=== PATIENT | male | born 1970 | race Caucasian/White ===

== ENCOUNTER 2020-11-20 10:13 | Emergency (ER) | payer OTHER, SELFPAY ==
[~2020-11-20] VITALS: Ht 165.1 cm; Wt 61.4 kg
[~2020-11-20 10:13] MED LIST: ASEN10TA10 SL; GABA-1201 PO; METF1000 PO
[2020-11-20] MEDS ORDERED: ACETAMINOPHEN 325 MG TABLET PO ONE (11:00)
[2020-11-20] MEDS ORDERED: SODIUM CHLORIDE 0.9% 1,000 ML IV ONE ×2 (11:00→12:15)
[2020-11-20 11:35] LABS: EOSINOPHILS % (AUTO) 0.3 % (1.0-6.0); HEMATOCRIT 40.6 % (41-53); HEMOGLOBIN 13.7 g/dL (13.5-17.5); LYMPHOCYTES # (AUTO) 1.6 K/uL (1.0-4.8); LYMPHOCYTES % (AUTO) 28.2 % (22.0-44.0); MEAN CORPUSCULAR HEMOGLOBIN 31.5 pg (26.0-34.0); MEAN CORPUSCULAR HGB CONC 33.6 G/dL (31.0-37.0); MEAN CORPUSCULAR VOLUME 94 fL (80-100); MONOCYTES # (AUTO) 0.4 K/uL (0.1-1.0); MONOCYTES % (AUTO) 7.3 % (2.0-9.0); NEUTROPHILS # (AUTO) 3.7 K/uL (1.8-7.7); NEUTROPHILS % (AUTO) 63.2 % (40.0-70.0); PLATELET COUNT (AUTO) 179 K/uL (150-450); RED BLOOD CELL COUNT(AUTO) 4.34 MIL/uL (4.50-5.90); RED CELL DISTRIBUTION WIDTH 12.8 % (11.5-14.5)
[2020-11-20 11:59] LABS: ALANINE AMINOTRANSFERASE 17 U/L (12-78); ALKALINE PHOSPHATASE 129 U/L (46-116); ANION GAP 14 mmol/L (8-16); ASPARTATE AMINOTRANSFERASE 11 U/L (15-37); BILIRUBIN,TOTAL 0.3 mg/dL (0.1-1.0); CALCIUM, TOTAL 8.4 mg/dL (8.8-10.5); CARBON DIOXIDE 23 mmol/L (22-29); CHLORIDE 95 mmol/L (98-107); CREATININE 0.96 mg/dL (0.60-1.30); GLOMERULAR FILTR. RATE CALC > 60 mL/min (>60); POTASSIUM 3.5 mmol/L (3.5-5.1); SODIUM SERUM 132 mmol/L (136-145); TOTAL PROTEIN, SERUM 6.5 g/dL (6.4-8.2); UREA NITROGEN, BLOOD 15 mg/dL (7-18)
[2020-11-20 12:01] LABS: GLUCOSE,RANDOM 620 mg/dL (70-110)
[2020-11-20] MEDS ORDERED: INSULIN REGULAR, HUMAN 100 UNITS/ML IVP ONE (12:15)
[2020-11-20 13:02] LABS: GLUCOMETER DEV NAME(LOC) ERT.5; GLUCOSE,POINT OF CARE 450 MG/DL (70-110)
[2020-11-20 13:28] LABS: GLUCOMETER DEV NAME(LOC) ERT.5; GLUCOSE,POINT OF CARE 315 MG/DL (70-110)
[2020-11-20 14:27] VITALS: BP 120/75
== END 2020-11-20 14:41 | disposition home or self-care (01) ==
LOC: EMS 10:20
DX: E11.65 Type 2 diabetes mellitus with hyperglycemia (principal); F20.9 Schizophrenia, unspecified; F31.9 Bipolar disorder, unspecified; F17.210 Nicotine dependence, cigarettes, uncomplicated; F15.90 Other stimulant use, unspecified, uncomplicated; Z88.1 Allergy status to other antibiotic agents; Z79.84 Long term (current) use of oral hypoglycemic drugs; Z79.899 Other long term (current) drug therapy
CPT/HCPCS: 36415; 80053; 82962; 85025; 96361; 96374; 99283; G0480; J1815; J7030

== ENCOUNTER 2022-09-17 19:53 | Inpatient (IN) | payer OTHER ==
[~2022-09-17] VITALS: Ht 165.1 cm; Wt 68.4 kg
[~2022-09-17 19:53] MED LIST changes: +ACET-2247 PO; -ASEN10TA10 SL; +BISA-151 PO; +CEFX2I IV; +DOCU-385 PO; +ETHY1MED2 NASAL; +FEP PR; -GABA-1201 PO; +HEPA500018 SQ; +HYDR-4723 PO; +INSU100V SQ; +LIDO700A15 TP; +MAGN-169 PO; -METF1000 PO; +PANT-31 PO
[2022-09-17 20:46] LABS: INR 1.1 (0.9-1.1); PROTHROMBIN TIME 11.7 SEC (9.4-11.6)
[2022-09-17 20:59] LABS: ANION GAP 15 mmol/L (8-16); CALCIUM, TOTAL 8.2 mg/dL (8.8-10.5); CARBON DIOXIDE 20 mmol/L (22-29); CHLORIDE 106 mmol/L (98-107); CREATININE 2.06 mg/dL (0.60-1.30); GLOMERULAR FILTR. RATE CALC 34 mL/min (>60); GLUCOSE,RANDOM 166 mg/dL (70-110); POTASSIUM 4.5 mmol/L (3.5-5.1); SODIUM SERUM 141 mmol/L (136-145)
[2022-09-17 21:00] LABS: EOSINOPHILS % (AUTO) 0.1 % (1.0-6.0); HEMATOCRIT 31.7 % (41-53); HEMOGLOBIN 9.5 g/dL (13.5-17.5); LYMPHOCYTES # (AUTO) 1.5 K/uL (1.0-4.8); LYMPHOCYTES % (AUTO) 11.2 % (22.0-44.0); MEAN CORPUSCULAR HEMOGLOBIN 23.3 pg (26.0-34.0); MEAN CORPUSCULAR VOLUME 78 fL (80-100); MONOCYTES # (AUTO) 1.6 K/uL (0.1-1.0); MONOCYTES % (AUTO) 11.8 % (2.0-9.0); NEUTROPHILS # (AUTO) 10.5 K/uL (1.8-7.7); NEUTROPHILS % (AUTO) 76.9 % (40.0-70.0); PLATELET COUNT (AUTO) 327 K/uL (150-450); RED BLOOD CELL COUNT(AUTO) 4.06 MIL/uL (4.50-5.90); RED CELL DISTRIBUTION WIDTH 20.4 % (11.5-14.5)
[2022-09-17 21:07] LABS: ALBUMIN 2.4 g/dL (3.4-5.0); ALKALINE PHOSPHATASE 86 U/L (46-116); ASPARTATE AMINOTRANSFERASE 63 U/L (15-37); BILIRUBIN,TOTAL 0.2 mg/dL (0.1-1.0); LIPASE 50 U/L (73-393); TOTAL PROTEIN, SERUM 7.2 g/dL (6.4-8.2)
[2022-09-17 21:11] LABS: LACTIC ACID 2.9 mmol/L (0.4-2.0)
[2022-09-17] MEDS ORDERED: SODIUM CHLORIDE 0.9% 1,900 ML IV ONE (21:15)
[2022-09-17 22:00] LABS: ALANINE AMINOTRANSFERASE 14 U/L (12-78)
[2022-09-17] MEDS ORDERED: CefTRIAXone 1 GM/DEXTROSE 50 ML IV ONE (22:00)
[2022-09-17] MEDS ORDERED: PANTOPRAZOLE SODIUM 40 MG/VIAL IVP ONE (22:15)
[2022-09-17] MEDS: PANTOPRAZOLE SODIUM 80 MG in SODIUM CHLORIDE 0.9% 100 ML IV SCH (22:15)
[2022-09-17] MEDS: HYDROCORTISONE 25 MG RECTAL SUPPOSITORY PR SCH (22:30)
[2022-09-17] MEDS ORDERED: ACETAMINOPHEN 325 MG TABLET PO PRN (22:30)
[2022-09-17] MEDS ORDERED: ONDANSETRON HCL 4 MG/2 ML VIAL IVP PRN (22:30)
[2022-09-17] MEDS ORDERED: SODIUM CHLORIDE 0.9% 1,000 ML IV ONE (22:30)
[2022-09-17] MEDS ORDERED: BISACODYL 10 MG RECTAL RECTAL SUPPOSITORY PR PRN (22:30)
[2022-09-17] MEDS ORDERED: MAGNESIUM HYDROXIDE SUSPENSION 30 ML UDCUP PO PRN (22:30)
[2022-09-18] MEDS ORDERED: IOHEXOL 350 MG/ML 100 ML VIAL ONE ×2 (02:56→03:11)
[2022-09-18] MEDS ORDERED: SODIUM CHLORIDE 0.9% 100 ML ONE ×2 (02:56→03:11)
[2022-09-18 04:03] LABS: APPEARANCE,URINE HAZY (CLEAR); BILIRUBIN,URINE NEGATIVE (NEGATIVE); GLUCOSE, URINE (UA) NEGATIVE (NEGATIVE); KETONES,URINE NEGATIVE (NEGATIVE); LEUKOCYTE ESTERASE ,URINE TRACE (NEGATIVE); NITRATE,URINE NEGATIVE (NEGATIVE); OCCULT BLOOD,URINE MODERATE (NEGATIVE); PH,URINE 5.5 (5.0-8.0); PROTEIN,URINE 100-200,SEE CONFIRM mg/dL (NEGATIVE); SPECIFIC GRAVITIY, URINE 1.018 (1.003-1.030); UROBILINOGEN,URINE <=1.0 mg/dL (<=1.0)
[2022-09-18 04:09] LABS: AMPHET/METH SCREEN,URINE NEGATIVE (NEGATIVE); BARBITURATE SCREEN, URINE NEGATIVE (NEGATIVE); BENZODIAZEPINES SCREEN,URINE NEGATIVE (NEGATIVE); CANNABINOID SCREEN,URINE NEGATIVE (NEGATIVE); COCAINE SCREEN,URINE NEGATIVE (NEGATIVE); METHADONE SCREEN, URINE NEGATIVE (NEGATIVE); OPIATE SCREEN,URINE NEGATIVE (NEGATIVE); PHENCYCLIDINE SCREEN,URINE NEGATIVE (NEGATIVE)
[2022-09-18 04:32] LABS: BACTERIA,URINE Few /HPF (None Seen); SQUAMOUS EPITHELIAL CELL,UR Few /LPF (None Seen); SULFOSALICYLIC ACID,URINE 2+ (Negative); WBC,URINE 0-2 /HPF (0-5)
[2022-09-18 04:33] LABS: AMORPHOUS SEDIMENT,UR Few /LPF (None Seen); COARSE GRANULAR CASTS,URINE None Seen /LPF (None Seen)
[2022-09-18 05:02] VITALS: BP 94/56
[2022-09-18 06:16] LABS: GLUCOMETER DEV NAME(LOC) 5N.1C; GLUCOSE,POINT OF CARE 89 MG/DL (70-110)
[2022-09-18 07:11] VITALS: BP 98/51
[2022-09-18] MEDS: PANTOPRAZOLE SODIUM 80 MG in SODIUM CHLORIDE 0.9% 100 ML IV SCH (08:15)
[2022-09-18] MEDS ORDERED: PANTOPRAZOLE SODIUM 80 MG in SODIUM CHLORIDE 0.9% 100 ML IV SCH (08:15)
[2022-09-18] MEDS: MORPHINE SULFATE 2 MG/ML SYRINGE IVP PRN (08:19)
[2022-09-18] MEDS ORDERED: *CLINICAL-LEVOFLOXACIN IVPB DOSING CLINICAL ONE (08:30)
[2022-09-18] MEDS: HYDROCORTISONE 25 MG RECTAL SUPPOSITORY PR SCH ×2 (08:35→21:00)
[2022-09-18] MEDS: DOCUSATE SODIUM 100 MG CAPSULE PO SCH ×2 (08:35→20:21)
[2022-09-18] MEDS: SODIUM CHLORIDE 0.9% 1,000 ML IV SCH ×2 (08:40→23:02)
[2022-09-18] MEDS: MetroNIDAZOLE 500 MG TABLET PO SCH ×3 (08:40→23:02)
[2022-09-18] MEDS ORDERED: PANTOPRAZOLE SODIUM 40 MG DR TABLET PO SCH (09:00)
[2022-09-18 10:33] LABS: BASOPHILS % (AUTO) 0.3 % (0.0-2.0); EOSINOPHILS % (AUTO) 0.3 % (1.0-6.0); HEMATOCRIT 27.7 % (41-53); HEMOGLOBIN 8.6 g/dL (13.5-17.5); LYMPHOCYTES # (AUTO) 1.5 K/uL (1.0-4.8); LYMPHOCYTES % (AUTO) 15.1 % (22.0-44.0); MEAN CORPUSCULAR HGB CONC 31.1 G/dL (31.0-37.0); MEAN CORPUSCULAR VOLUME 77 fL (80-100); MONOCYTES # (AUTO) 0.5 K/uL (0.1-1.0); MONOCYTES % (AUTO) 5.7 % (2.0-9.0); NEUTROPHILS # (AUTO) 7.6 K/uL (1.8-7.7); NEUTROPHILS % (AUTO) 78.6 % (40.0-70.0); PLATELET COUNT (AUTO) 297 K/uL (150-450); RED BLOOD CELL COUNT(AUTO) 3.59 MIL/uL (4.50-5.90); RED CELL DISTRIBUTION WIDTH 20.2 % (11.5-14.5)
[2022-09-18 10:48] LABS: ALANINE AMINOTRANSFERASE 8 U/L (12-78); ALBUMIN 2.1 g/dL (3.4-5.0); ALKALINE PHOSPHATASE 84 U/L (46-116); ANION GAP 8 mmol/L (8-16); ASPARTATE AMINOTRANSFERASE 53 U/L (15-37); BILIRUBIN,TOTAL 0.2 mg/dL (0.1-1.0); CALCIUM, TOTAL 8.1 mg/dL (8.8-10.5); CARBON DIOXIDE 22 mmol/L (22-29); CHLORIDE 110 mmol/L (98-107); CREATININE 0.78 mg/dL (0.60-1.30); GLOMERULAR FILTR. RATE CALC > 60 mL/min (>60); GLUCOSE,RANDOM 113 mg/dL (70-110); POTASSIUM 4.1 mmol/L (3.5-5.1); SODIUM SERUM 139 mmol/L (136-145); TOTAL PROTEIN, SERUM 6.6 g/dL (6.4-8.2)
[2022-09-18 11:23] VITALS: BP 96/54
[2022-09-18] MEDS: HYDROCODONE/ACETAMINOPHEN 5-325 MG TABLET PO PRN ×2 (14:50→20:27)
[2022-09-18 15:48] VITALS: BP 111/51
[2022-09-18] MEDS ORDERED: LEVOFLOXACIN 750 MG/D5% WATER 150 ML IV SCH (16:00)
[2022-09-18 20:13] VITALS: BP 135/69
[2022-09-18] MEDS: PANTOPRAZOLE SODIUM 40 MG DR TABLET PO SCH (20:21)
[2022-09-18] MEDS: ZOLPIDEM TARTRATE 5 MG TABLET PO PRN (20:21)
[2022-09-18 23:14] VITALS: BP 131/72
[2022-09-19] MEDS: HYDROCODONE/ACETAMINOPHEN 5-325 MG TABLET PO PRN ×3 (03:02→10:18)
[2022-09-19] MEDS: MORPHINE SULFATE 2 MG/ML SYRINGE IVP PRN ×5 (03:07→18:45)
[2022-09-19 04:34] VITALS: BP 125/65
[2022-09-19] MEDS: SODIUM CHLORIDE 0.9% 1,000 ML IV SCH ×2 (06:44→17:50)
[2022-09-19 07:19] VITALS: BP 147/79
[2022-09-19 08:03] LABS: BASOPHILS % (AUTO) 0.4 % (0.0-2.0); EOSINOPHILS % (AUTO) 0.4 % (1.0-6.0); HEMATOCRIT 27.1 % (41-53); HEMOGLOBIN 8.4 g/dL (13.5-17.5); LYMPHOCYTES # (AUTO) 1.7 K/uL (1.0-4.8); LYMPHOCYTES % (AUTO) 16.5 % (22.0-44.0); MEAN CORPUSCULAR HEMOGLOBIN 23.9 pg (26.0-34.0); MEAN CORPUSCULAR VOLUME 77 fL (80-100); MONOCYTES # (AUTO) 0.6 K/uL (0.1-1.0); MONOCYTES % (AUTO) 5.3 % (2.0-9.0); NEUTROPHILS # (AUTO) 8.2 K/uL (1.8-7.7); NEUTROPHILS % (AUTO) 77.4 % (40.0-70.0); PLATELET COUNT (AUTO) 277 K/uL (150-450); RED CELL DISTRIBUTION WIDTH 19.8 % (11.5-14.5)
[2022-09-19 08:14] LABS: ANION GAP 9 mmol/L (8-16); CALCIUM, TOTAL 8.5 mg/dL (8.8-10.5); CARBON DIOXIDE 20 mmol/L (22-29); CHLORIDE 107 mmol/L (98-107); CREATININE 0.69 mg/dL (0.60-1.30); GLOMERULAR FILTR. RATE CALC > 60 mL/min (>60); GLUCOSE,RANDOM 97 mg/dL (70-110); POTASSIUM 3.9 mmol/L (3.5-5.1); SODIUM SERUM 136 mmol/L (136-145)
[2022-09-19] MEDS: MetroNIDAZOLE 500 MG TABLET PO SCH ×2 (08:29→16:09)
[2022-09-19] MEDS: DOCUSATE SODIUM 100 MG CAPSULE PO SCH ×2 (09:00→20:40)
[2022-09-19] MEDS: HYDROCORTISONE 25 MG RECTAL SUPPOSITORY PR SCH ×2 (09:00→21:00)
[2022-09-19] MEDS: PANTOPRAZOLE SODIUM 40 MG DR TABLET PO SCH ×2 (09:58→20:40)
[2022-09-19 11:18] VITALS: BP 150/82
[2022-09-19 13:10] LABS: PHOSPHORUS 2.1 mg/dL (2.5-4.9)
[2022-09-19 15:33] VITALS: BP 166/95
[2022-09-19] MEDS: LEVOFLOXACIN 750 MG/D5% WATER 150 ML IV SCH (16:10)
[2022-09-19 20:05] VITALS: BP 154/99
[2022-09-19] MEDS: ZOLPIDEM TARTRATE 5 MG TABLET PO PRN (20:40)
[2022-09-20] MEDS: MetroNIDAZOLE 500 MG TABLET PO SCH ×3 (00:11→16:00)
[2022-09-20] MEDS: PANTOPRAZOLE SODIUM 40 MG DR TABLET PO SCH ×2 (08:18→21:00)
[2022-09-20] MEDS: DOCUSATE SODIUM 100 MG CAPSULE PO SCH ×2 (08:18→20:40)
[2022-09-20] MEDS: THIAMINE 100 MG TABLET PO SCH (08:18)
[2022-09-20] MEDS: HYDROCORTISONE 25 MG RECTAL SUPPOSITORY PR SCH ×2 (08:28→21:00)
[2022-09-20] MEDS: SODIUM CHLORIDE 0.9% 1,000 ML IV SCH (11:01)
[2022-09-20] MEDS: LEVOFLOXACIN 750 MG/D5% WATER 150 ML IV SCH (16:00)
[2022-09-21 05:42] VITALS: BP 138/62
[2022-09-21] MEDS: HYDROCODONE/ACETAMINOPHEN 5-325 MG TABLET PO PRN (06:09)
[2022-09-21] MEDS: SODIUM CHLORIDE 0.9% 1,000 ML IV SCH (06:18)
[2022-09-21 07:01] LABS: BASOPHILS % (AUTO) 0.3 % (0.0-2.0); EOSINOPHILS % (AUTO) 0.4 % (1.0-6.0); HEMATOCRIT 31.7 % (41-53); HEMOGLOBIN 10.1 g/dL (13.5-17.5); LYMPHOCYTES # (AUTO) 1.3 K/uL (1.0-4.8); LYMPHOCYTES % (AUTO) 14.3 % (22.0-44.0); MEAN CORPUSCULAR HEMOGLOBIN 24.6 pg (26.0-34.0); MEAN CORPUSCULAR HGB CONC 31.7 G/dL (31.0-37.0); MEAN CORPUSCULAR VOLUME 77 fL (80-100); MONOCYTES # (AUTO) 0.7 K/uL (0.1-1.0); MONOCYTES % (AUTO) 7.7 % (2.0-9.0); NEUTROPHILS # (AUTO) 7.1 K/uL (1.8-7.7); NEUTROPHILS % (AUTO) 77.3 % (40.0-70.0); PLATELET COUNT (AUTO) 331 K/uL (150-450); RED BLOOD CELL COUNT(AUTO) 4.09 MIL/uL (4.50-5.90); RED CELL DISTRIBUTION WIDTH 19.2 % (11.5-14.5)
[2022-09-21 07:21] LABS: ANION GAP 17 mmol/L (8-16); CALCIUM, TOTAL 8.4 mg/dL (8.8-10.5); CARBON DIOXIDE 18 mmol/L (22-29); CHLORIDE 108 mmol/L (98-107); CREATININE 0.71 mg/dL (0.60-1.30); GLOMERULAR FILTR. RATE CALC > 60 mL/min (>60); GLUCOSE,RANDOM 157 mg/dL (70-110); POTASSIUM 3.2 mmol/L (3.5-5.1); SODIUM SERUM 143 mmol/L (136-145)
[2022-09-21] MEDS: MetroNIDAZOLE 500 MG TABLET PO SCH ×3 (08:00→16:29)
[2022-09-21 08:06] VITALS: BP 137/77
[2022-09-21] MEDS: PANTOPRAZOLE SODIUM 40 MG DR TABLET PO SCH (08:33)
[2022-09-21] MEDS: HYDROCORTISONE 25 MG RECTAL SUPPOSITORY PR SCH (08:33)
[2022-09-21] MEDS: THIAMINE 100 MG TABLET PO SCH (08:33)
[2022-09-21] MEDS: DOCUSATE SODIUM 100 MG CAPSULE PO SCH (08:33)
[2022-09-21] MEDS: MORPHINE SULFATE 2 MG/ML SYRINGE IVP PRN ×2 (08:34→12:17)
[2022-09-21] MEDS ORDERED: POTASSIUM CHL 10 MEQ/WATER 50 ML IV PRN (12:00)
[2022-09-21] MEDS ORDERED: POTASSIUM CHLORIDE 20 MEQ ER TABLET PO PRN (12:00)
[2022-09-21] MEDS ORDERED: OxyCODONE HCL/ACETAMINOPHEN 5-325 MG TABLET PO PRN (13:30)
[2022-09-21] MEDS: LEVOFLOXACIN 750 MG/D5% WATER 150 ML IV SCH (16:29)
[2022-09-21] MEDS ORDERED: ANUSHCS PR (16:43)
[2022-09-21] MEDS ORDERED: LEVO750T68 PO (16:43)
[2022-09-21] MEDS ORDERED: METR500 PO (16:44)
[2022-09-21] MEDS ORDERED: NS5H IV (16:46)
[2022-09-21] MEDS ORDERED: THIA100T80 PO (16:47)
[2022-09-21] MEDS ORDERED: OXYC-38 PO (16:48)
== END 2022-09-21 18:15 | DRG 720 ==
LOC: EMS 19:54 → 5S 09-18 04:30 → EMS 09-18 04:32 → 6N 09-20 21:57
PROVIDERS: ADMIT Internal Medicine; ATTEND Internal Medicine
DX: A41.9 Sepsis, unspecified organism (principal); N17.0 Acute kidney failure with tubular necrosis; G93.41 Metabolic encephalopathy; G82.50 Quadriplegia, unspecified; E43 Unspecified severe protein-calorie malnutrition; I95.9 Hypotension, unspecified; E11.9 Type 2 diabetes mellitus without complications; D64.9 Anemia, unspecified; F10.20 Alcohol dependence, uncomplicated; F20.9 Schizophrenia, unspecified; K52.9 Noninfective gastroenteritis and colitis, unspecified; F32.A Depression, unspecified; F15.90 Other stimulant use, unspecified, uncomplicated; I10 Essential (primary) hypertension; Y90.9 Presence of alcohol in blood, level not specified; Z75.1 Person awaiting admission to adequate facility elsewhere; Z87.891 Personal history of nicotine dependence; Z88.0 Allergy status to penicillin; Z68.21 Body mass index [BMI] 21.0-21.9, adult; Z79.84 Long term (current) use of oral hypoglycemic drugs
CPT/HCPCS: 51702; 71045; 74177; 80048; 80053; 80307; 81001; 81002; 82271; 82962; 83605; 83690; 84100; 84132; 84145; 85025; 85610; 85730; 86850; 86900; 86901; 87040; 93005; 99291; C9113; G0378; G0480; J0696; J1956; J2270; J7030; J7050; Q9967; 36415-L1; 36415-TC

== ENCOUNTER 2023-08-04 10:37 | Inpatient (IN) | payer OTHER ==
[~2023-08-04] VITALS: Ht 167.6 cm; Wt 72.0 kg
[~2023-08-04 10:37] MED LIST changes: +ANUSHCS PR; -BISA-151 PO; -CEFX2I IV; -ETHY1MED2 NASAL; -FEP PR; -HEPA500018 SQ; -HYDR-4723 PO; -INSU100V SQ; +LEVO750T68 PO; -LIDO700A15 TP; -MAGN-169 PO; +METR500 PO; +OXYC-38 PO; +THIA100T80 PO
[2023-08-04] MEDS ORDERED: IOHEXOL 350 MG/ML 100 ML VIAL ONE (12:06)
[2023-08-04] MEDS ORDERED: SODIUM CHLORIDE 0.9% 100 ML ONE (12:06)
[2023-08-04] MEDS ORDERED: ACETAMINOPHEN 325 MG TABLET PO PRN (12:45)
[2023-08-04] MEDS ORDERED: MORPHINE SULFATE 4 MG/ML SYRINGE IVP PRN (12:45)
[2023-08-04] MEDS ORDERED: ONDANSETRON HCL 4 MG/2 ML VIAL IVP PRN ×2 (12:45→16:00)
[2023-08-04 12:50] LABS: BASOPHILS % (AUTO) 0.9 % (0.0-2.0); EOSINOPHILS % (AUTO) 7.8 % (1.0-6.0); HEMOGLOBIN 9.4 g/dL (13.5-17.5); LYMPHOCYTES # (AUTO) 2.1 K/uL (1.0-4.8); MEAN CORPUSCULAR HEMOGLOBIN 23.6 pg (26.0-34.0); MEAN CORPUSCULAR HGB CONC 31.3 G/dL (31.0-37.0); MEAN CORPUSCULAR VOLUME 76 fL (80-100); MONOCYTES # (AUTO) 0.7 K/uL (0.1-1.0); MONOCYTES % (AUTO) 7.2 % (2.0-9.0); NEUTROPHILS # (AUTO) 6.1 K/uL (1.8-7.7); NEUTROPHILS % (AUTO) 62.1 % (40.0-70.0); PLATELET COUNT (AUTO) 436 K/uL (150-450); RED BLOOD CELL COUNT(AUTO) 3.96 MIL/uL (4.50-5.90); RED CELL DISTRIBUTION WIDTH 17.2 % (11.5-14.5); WHITE BLOOD COUNT (AUTO) 9.8 K/uL (4.5-11.0)
[2023-08-04 12:53] LABS: ERYTHROCYTE SEDIMENTATION RATE 94 MM/HR (0-20)
[2023-08-04 12:59] LABS: ANION GAP 8 mmol/L (8-16); CALCIUM, TOTAL 8.3 mg/dL (8.8-10.5); CARBON DIOXIDE 26 mmol/L (22-29); CHLORIDE 98 mmol/L (98-107); CREATININE 0.64 mg/dL (0.60-1.30); GLOMERULAR FILTR. RATE CALC > 60 mL/min (>60); GLUCOSE,RANDOM 211 mg/dL (70-110); POTASSIUM 3.9 mmol/L (3.5-5.1); SODIUM SERUM 132 mmol/L (136-145); UREA NITROGEN, BLOOD 18 mg/dL (7-18)
[2023-08-04 13:02] LABS: C-REACTIVE PROTEIN QUANT 9.65 mg/dL (0.00-0.30)
[2023-08-04] MEDS: HYDROCODONE/ACETAMINOPHEN 5-325 MG TABLET PO PRN ×2 (13:02→22:17)
[2023-08-04] MEDS ORDERED: GADOTERATE MEGLUMINE 10 MMOL/20 ML VIAL IVP ONE (13:46)
[2023-08-04 15:06] LABS: RBC MORPHOLOGY COMMENT ABNORMAL RBC MORPH
[2023-08-04 16:00] VITALS: BP 102/66; PULSE 66; RESP 19; TEMP 97.8
[2023-08-04] MEDS ORDERED: BISACODYL 10 MG RECTAL RECTAL SUPPOSITORY PR PRN (16:00)
[2023-08-04] MEDS ORDERED: MAGNESIUM HYDROXIDE SUSPENSION 30 ML UDCUP PO PRN (16:00)
[2023-08-04] MEDS: HEPARIN SODIUM,PORCINE 5,000 UNITS/ML VIAL SQ SCH (16:39)
[2023-08-04] MEDS ORDERED: SODIUM CHLORIDE 0.9% 500 ML IV ONE (18:10)
[2023-08-04] MEDS: VANCOMYCIN 1.25 GM/WATER(PEG) 250 ML IV ONE (18:14)
[2023-08-04 19:47] VITALS: BP 111/63; PULSE 74; RESP 18; TEMP 98.1
[2023-08-04] MEDS: DOCUSATE SODIUM 100 MG CAPSULE PO SCH (20:49)
[2023-08-05 03:57] VITALS: BP 113/64; PULSE 72; RESP 18; TEMP 98.3
[2023-08-05 06:59] LABS: BASOPHILS % (AUTO) 1.2 % (0.0-2.0); EOSINOPHILS % (AUTO) 11.6 % (1.0-6.0); HEMOGLOBIN 9.8 g/dL (13.5-17.5); LYMPHOCYTES # (AUTO) 1.7 K/uL (1.0-4.8); LYMPHOCYTES % (AUTO) 19.9 % (22.0-44.0); MEAN CORPUSCULAR HEMOGLOBIN 23.7 pg (26.0-34.0); MEAN CORPUSCULAR HGB CONC 31.5 G/dL (31.0-37.0); MEAN CORPUSCULAR VOLUME 75 fL (80-100); MONOCYTES # (AUTO) 0.6 K/uL (0.1-1.0); MONOCYTES % (AUTO) 6.5 % (2.0-9.0); NEUTROPHILS # (AUTO) 5.1 K/uL (1.8-7.7); NEUTROPHILS % (AUTO) 60.8 % (40.0-70.0); PLATELET COUNT (AUTO) 447 K/uL (150-450); RED BLOOD CELL COUNT(AUTO) 4.12 MIL/uL (4.50-5.90); RED CELL DISTRIBUTION WIDTH 17.1 % (11.5-14.5); WHITE BLOOD COUNT (AUTO) 8.4 K/uL (4.5-11.0)
[2023-08-05 07:12] LABS: ANION GAP 8 mmol/L (8-16); CALCIUM, TOTAL 8.5 mg/dL (8.8-10.5); CARBON DIOXIDE 27 mmol/L (22-29); CHLORIDE 100 mmol/L (98-107); CREATININE 0.69 mg/dL (0.60-1.30); GLOMERULAR FILTR. RATE CALC > 60 mL/min (>60); GLUCOSE,RANDOM 187 mg/dL (70-110); POTASSIUM 4.1 mmol/L (3.5-5.1); SODIUM SERUM 135 mmol/L (136-145); UREA NITROGEN, BLOOD 14 mg/dL (7-18)
[2023-08-05 07:34] LABS: RBC MORPHOLOGY COMMENT ABNORMAL RBC MORPH
[2023-08-05 08:05] VITALS: BP 116/67; PULSE 70; RESP 20; TEMP 98.8
[2023-08-05] MEDS: VANCOMYCIN 1GM/WATER(PEG/NADA) 200 ML IV SCH (08:13)
[2023-08-05] MEDS: PANTOPRAZOLE SODIUM 40 MG DR TABLET PO SCH (08:39)
[2023-08-05 15:18] VITALS: BP 122/69; PULSE 74; RESP 2; TEMP 98.4
[2023-08-05 19:35] VITALS: BP 123/74; PULSE 73; RESP 18; TEMP 97.7
[2023-08-05] MEDS: ZOLPIDEM TARTRATE 5 MG TABLET PO PRN (23:24)
[2023-08-06 04:38] VITALS: BP 112/67; PULSE 78; RESP 18; TEMP 98.6
[2023-08-06] MEDS: MORPHINE SULFATE 2 MG/ML SYRINGE IVP PRN (05:58)
[2023-08-06 08:02] VITALS: BP 125/71; PULSE 73; RESP 18; TEMP 98.4
[2023-08-06 08:04] LABS: BASOPHILS % (AUTO) 1.1 % (0.0-2.0); EOSINOPHILS % (AUTO) 13.6 % (1.0-6.0); HEMOGLOBIN 9.8 g/dL (13.5-17.5); LYMPHOCYTES # (AUTO) 1.8 K/uL (1.0-4.8); LYMPHOCYTES % (AUTO) 17.7 % (22.0-44.0); MEAN CORPUSCULAR HEMOGLOBIN 23.9 pg (26.0-34.0); MEAN CORPUSCULAR HGB CONC 31.8 G/dL (31.0-37.0); MEAN CORPUSCULAR VOLUME 75 fL (80-100); MONOCYTES # (AUTO) 0.7 K/uL (0.1-1.0); MONOCYTES % (AUTO) 7.2 % (2.0-9.0); NEUTROPHILS # (AUTO) 6.2 K/uL (1.8-7.7); NEUTROPHILS % (AUTO) 60.4 % (40.0-70.0); PLATELET COUNT (AUTO) 461 K/uL (150-450); RED BLOOD CELL COUNT(AUTO) 4.12 MIL/uL (4.50-5.90); RED CELL DISTRIBUTION WIDTH 17.4 % (11.5-14.5); WHITE BLOOD COUNT (AUTO) 10.3 K/uL (4.5-11.0)
[2023-08-06 09:15] LABS: ANION GAP 11 mmol/L (8-16); CALCIUM, TOTAL 8.4 mg/dL (8.8-10.5); CARBON DIOXIDE 27 mmol/L (22-29); CHLORIDE 99 mmol/L (98-107); GLOMERULAR FILTR. RATE CALC > 60 mL/min (>60); GLUCOSE,RANDOM 174 mg/dL (70-110); POTASSIUM 4.2 mmol/L (3.5-5.1); SODIUM SERUM 136 mmol/L (136-145); UREA NITROGEN, BLOOD 9 mg/dL (7-18)
[2023-08-06] MEDS ORDERED: GADOTERATE MEGLUMINE 10 MMOL/20 ML VIAL IVP ONE (09:28)
[2023-08-06 15:56] VITALS: BP 141/69; PULSE 76; RESP 18; TEMP 98.1
[2023-08-06] MEDS: VANCOMYCIN 1GM/WATER(PEG/NADA) 200 ML IV SCH (16:18)
[2023-08-06 19:19] VITALS: BP 118/70; PULSE 78; RESP 18; TEMP 98.2
[2023-08-07 04:01] VITALS: BP 107/60; PULSE 82; RESP 18; TEMP 98.4
[2023-08-07 07:04] LABS: BASOPHILS % (AUTO) 1.1 % (0.0-2.0); HEMATOCRIT 31.2 % (41-53); HEMOGLOBIN 9.9 g/dL (13.5-17.5); LYMPHOCYTES # (AUTO) 1.9 K/uL (1.0-4.8); LYMPHOCYTES % (AUTO) 20.7 % (22.0-44.0); MEAN CORPUSCULAR HEMOGLOBIN 23.9 pg (26.0-34.0); MEAN CORPUSCULAR HGB CONC 31.9 G/dL (31.0-37.0); MEAN CORPUSCULAR VOLUME 75 fL (80-100); MONOCYTES # (AUTO) 0.9 K/uL (0.1-1.0); MONOCYTES % (AUTO) 9.3 % (2.0-9.0); NEUTROPHILS # (AUTO) 4.9 K/uL (1.8-7.7); NEUTROPHILS % (AUTO) 53.5 % (40.0-70.0); PLATELET COUNT (AUTO) 449 K/uL (150-450); RED BLOOD CELL COUNT(AUTO) 4.17 MIL/uL (4.50-5.90); WHITE BLOOD COUNT (AUTO) 9.2 K/uL (4.5-11.0)
[2023-08-07 07:07] LABS: EOSINOPHILS % (AUTO) 15.4 % (1.0-6.0)
[2023-08-07 07:13] LABS: ANION GAP 9 mmol/L (8-16); CALCIUM, TOTAL 8.7 mg/dL (8.8-10.5); CARBON DIOXIDE 26 mmol/L (22-29); CHLORIDE 100 mmol/L (98-107); GLOMERULAR FILTR. RATE CALC > 60 mL/min (>60); GLUCOSE,RANDOM 204 mg/dL (70-110); SODIUM SERUM 135 mmol/L (136-145); UREA NITROGEN, BLOOD 11 mg/dL (7-18)
[2023-08-07] MEDS: DiphenhydrAMINE HCL 25 MG CAPSULE PO ONE (08:24)
[2023-08-07 08:37] VITALS: BP 116/74; PULSE 87; RESP 20; TEMP 98.4
[2023-08-07 16:49] VITALS: BP 108/68; PULSE 85; RESP 20; TEMP 98
[2023-08-07] MEDS: IVERMECTIN 3 MG TABLET PO ONE (17:21)
[2023-08-07 19:23] VITALS: BP 115/71; PULSE 75; RESP 19; TEMP 97.7
[2023-08-08 05:10] VITALS: BP 103/69; PULSE 92; RESP 18; TEMP 99.5
[2023-08-08 08:15] LABS: ANION GAP 11 mmol/L (8-16); CALCIUM, TOTAL 8.6 mg/dL (8.8-10.5); CARBON DIOXIDE 23 mmol/L (22-29); CHLORIDE 100 mmol/L (98-107); CREATININE 0.66 mg/dL (0.60-1.30); GLOMERULAR FILTR. RATE CALC > 60 mL/min (>60); GLUCOSE,RANDOM 185 mg/dL (70-110); POTASSIUM 3.8 mmol/L (3.5-5.1); SODIUM SERUM 134 mmol/L (136-145); UREA NITROGEN, BLOOD 18 mg/dL (7-18); VANCOMYCIN,RANDOM 28.5 mcg/mL (25.0-50.0)
[2023-08-08 09:44] VITALS: BP 104/73; PULSE 86; RESP 19; TEMP 98.1
[2023-08-08] MEDS ORDERED: RINGERS SOLUTION,LACTATED 1,000 ML IV ONE (11:57)
[2023-08-08] MEDS ORDERED: SUGAMMADEX SODIUM 200 MG/2 ML VIAL IVP ONE (12:00)
[2023-08-08] MEDS ORDERED: PROPOFOL 1% 20 ML VIAL IVP ONE (12:00)
[2023-08-08] MEDS ORDERED: LIDOCAINE/PF 2% 5 ML VIAL IM ONE (12:00)
[2023-08-08] MEDS ORDERED: DEXAMETHASONE SOD PHOS 4 MG/ML VIAL IVP ONE (12:00)
[2023-08-08] MEDS ORDERED: ONDANSETRON HCL 4 MG/2 ML VIAL IVP ONE (12:00)
[2023-08-08] MEDS ORDERED: ROCURONIUM BROMIDE 10 MG/ML 5 ML VIAL IVP ONE (12:10)
[2023-08-08] MEDS ORDERED: PROPOFOL 1% ISO-OSM 1000 MG/100 ML BOTTLE IV ONE (12:10)
[2023-08-08] MEDS ORDERED: ACETAMINOPHEN 1000 MG/ISO-OSM 100 ML IV ONE (15:18)
[2023-08-08] MEDS: KETOROLAC TROMETHAMINE 15 MG/ML VIAL IVP ONE (15:35)
[2023-08-08] MEDS: IVERMECTIN 3 MG TABLET PO ONE (16:27)
[2023-08-08 16:34] VITALS: BP 125/76; PULSE 80; RESP 18; TEMP 97.9
[2023-08-08 20:59] VITALS: BP 111/70; PULSE 82; RESP 18; TEMP 97.5
[2023-08-09 05:35] VITALS: BP 105/65; PULSE 72; RESP 18; TEMP 98.4
[2023-08-09] MEDS ORDERED: MIDAZOLAM HCL 2 MG/2 ML VIAL IVP ONE (06:45)
[2023-08-09 07:55] LABS: ANION GAP 10 mmol/L (8-16); CALCIUM, TOTAL 8.4 mg/dL (8.8-10.5); CARBON DIOXIDE 24 mmol/L (22-29); CHLORIDE 102 mmol/L (98-107); CREATININE 0.64 mg/dL (0.60-1.30); GLOMERULAR FILTR. RATE CALC > 60 mL/min (>60); GLUCOSE,RANDOM 194 mg/dL (70-110); POTASSIUM 4.1 mmol/L (3.5-5.1); SODIUM SERUM 136 mmol/L (136-145); UREA NITROGEN, BLOOD 17 mg/dL (7-18)
[2023-08-09 08:47] VITALS: BP 106/59; PULSE 71; RESP 18; TEMP 98.1
[2023-08-09] MEDS: VANCOMYCIN 750 MG/WATER(PEG) 150 ML IV SCH (08:58)
[2023-08-09] MEDS: MetFORMIN HCL 500 MG TABLET PO SCH (08:59)
[2023-08-09] MEDS ORDERED: SODIUM CHLORIDE 0.9% 500 ML IV ONE (09:07)
[2023-08-09 16:58] VITALS: BP 112/67; PULSE 83; RESP 18; TEMP 97.6
[2023-08-09 21:53] VITALS: BP 124/77; PULSE 83; RESP 18; TEMP 97.9
[2023-08-09] MEDS: CHLORHEXIDINE GLUCONATE 2% TOWELETTE [2'S/6'S] TP SCH (22:23)
[2023-08-10 06:29] VITALS: BP 107/71; PULSE 90; RESP 18; TEMP 99.3
[2023-08-10 07:42] LABS: ANION GAP 10 mmol/L (8-16); C-REACTIVE PROTEIN QUANT 3.36 mg/dL (0.00-0.30); CALCIUM, TOTAL 8.1 mg/dL (8.8-10.5); CARBON DIOXIDE 25 mmol/L (22-29); CHLORIDE 101 mmol/L (98-107); CREATININE 0.57 mg/dL (0.60-1.30); GLOMERULAR FILTR. RATE CALC > 60 mL/min (>60); GLUCOSE,RANDOM 203 mg/dL (70-110); SODIUM SERUM 136 mmol/L (136-145); UREA NITROGEN, BLOOD 15 mg/dL (7-18); VANCOMYCIN,RANDOM 13.5 mcg/mL (25.0-50.0)
[2023-08-10 08:40] VITALS: BP 118/71; PULSE 70; RESP 18; TEMP 98.7
[2023-08-10] MEDS: VANCOMYCIN 1GM/WATER(PEG/NADA) 200 ML IV SCH (09:08)
[2023-08-10 09:12] LABS: ANION GAP 10 mmol/L (8-16); C-REACTIVE PROTEIN QUANT 3.33 mg/dL (0.00-0.30); CALCIUM, TOTAL 8.2 mg/dL (8.8-10.5); CARBON DIOXIDE 25 mmol/L (22-29); CHLORIDE 101 mmol/L (98-107); CREATININE 0.63 mg/dL (0.60-1.30); GLOMERULAR FILTR. RATE CALC > 60 mL/min (>60); GLUCOSE,RANDOM 224 mg/dL (70-110); POTASSIUM 3.9 mmol/L (3.5-5.1); SODIUM SERUM 136 mmol/L (136-145); UREA NITROGEN, BLOOD 15 mg/dL (7-18)
[2023-08-10] MEDS: MULTIVITAMINS WITH MINERALS, THERAPEUTIC TABLET PO SCH (09:53)
[2023-08-10] MEDS: PERMETHRIN 5% 60 GM CREAM TP ONE (15:02)
[2023-08-10 16:32] VITALS: BP 108/58; PULSE 77; RESP 18; TEMP 98.9
[2023-08-10 20:35] VITALS: BP 121/71; PULSE 75; RESP 18; TEMP 98.3
[2023-08-11 03:46] VITALS: BP 135/63; PULSE 84; RESP 18; TEMP 99
[2023-08-11 07:07] LABS: ANION GAP 10 mmol/L (8-16); CALCIUM, TOTAL 8.3 mg/dL (8.8-10.5); CARBON DIOXIDE 25 mmol/L (22-29); CHLORIDE 100 mmol/L (98-107); CREATININE 0.64 mg/dL (0.60-1.30); GLOMERULAR FILTR. RATE CALC > 60 mL/min (>60); GLUCOSE,RANDOM 310 mg/dL (70-110); POTASSIUM 3.9 mmol/L (3.5-5.1); SODIUM SERUM 135 mmol/L (136-145); UREA NITROGEN, BLOOD 15 mg/dL (7-18)
[2023-08-11 08:22] VITALS: BP 108/68; PULSE 57; RESP 18; TEMP 98.3
[2023-08-11 15:53] VITALS: BP 118/67; PULSE 75; RESP 20; TEMP 98.7
[2023-08-11 21:00] VITALS: BP 116/80; PULSE 67; RESP 20; TEMP 97.8
[2023-08-11] MEDS: MetFORMIN HCL 500 MG TABLET PO SCH (21:21)
[2023-08-12 03:35] VITALS: BP 126/73; PULSE 80; RESP 20; TEMP 97.9
[2023-08-12 07:01] LABS: BASOPHILS % (AUTO) 0.7 % (0.0-2.0); EOSINOPHILS % (AUTO) 8.7 % (1.0-6.0); HEMATOCRIT 30.9 % (41-53); LYMPHOCYTES # (AUTO) 2.2 K/uL (1.0-4.8); LYMPHOCYTES % (AUTO) 21.4 % (22.0-44.0); MEAN CORPUSCULAR HEMOGLOBIN 24.3 pg (26.0-34.0); MEAN CORPUSCULAR HGB CONC 32.2 G/dL (31.0-37.0); MEAN CORPUSCULAR VOLUME 76 fL (80-100); MONOCYTES # (AUTO) 0.7 K/uL (0.1-1.0); MONOCYTES % (AUTO) 6.7 % (2.0-9.0); NEUTROPHILS # (AUTO) 6.5 K/uL (1.8-7.7); NEUTROPHILS % (AUTO) 62.5 % (40.0-70.0); PLATELET COUNT (AUTO) 412 K/uL (150-450); RED BLOOD CELL COUNT(AUTO) 4.09 MIL/uL (4.50-5.90); RED CELL DISTRIBUTION WIDTH 17.7 % (11.5-14.5); WHITE BLOOD COUNT (AUTO) 10.4 K/uL (4.5-11.0)
[2023-08-12 07:29] LABS: ALANINE AMINOTRANSFERASE 12 U/L (12-78); ALBUMIN 2.4 g/dL (3.4-5.0); ALKALINE PHOSPHATASE 110 U/L (46-116); ANION GAP 8 mmol/L (8-16); ASPARTATE AMINOTRANSFERASE 13 U/L (15-37); BILIRUBIN,TOTAL 0.2 mg/dL (0.1-1.0); CALCIUM, TOTAL 8.7 mg/dL (8.8-10.5); CARBON DIOXIDE 26 mmol/L (22-29); CHLORIDE 101 mmol/L (98-107); CREATININE 0.61 mg/dL (0.60-1.30); GLOMERULAR FILTR. RATE CALC > 60 mL/min (>60); GLUCOSE,RANDOM 221 mg/dL (70-110); POTASSIUM 4.2 mmol/L (3.5-5.1); SODIUM SERUM 135 mmol/L (136-145); TOTAL PROTEIN, SERUM 7.8 g/dL (6.4-8.2); UREA NITROGEN, BLOOD 25 mg/dL (7-18)
[2023-08-12 07:39] VITALS: BP 124/72; PULSE 82; RESP 19; TEMP 97.9
[2023-08-12 07:43] LABS: C-REACTIVE PROTEIN QUANT 3.16 mg/dL (0.00-0.30)
[2023-08-12 16:07] VITALS: BP 128/77; PULSE 80; RESP 19; TEMP 98
[2023-08-12 21:29] VITALS: BP 125/75; PULSE 72; RESP 19; TEMP 97.9
[2023-08-13 04:45] VITALS: BP 122/74; PULSE 80; RESP 18; TEMP 97.7
[2023-08-13 08:20] LABS: ANION GAP 8 mmol/L (8-16); CALCIUM, TOTAL 8.6 mg/dL (8.8-10.5); CARBON DIOXIDE 27 mmol/L (22-29); CHLORIDE 98 mmol/L (98-107); CREATININE 0.61 mg/dL (0.60-1.30); GLOMERULAR FILTR. RATE CALC > 60 mL/min (>60); GLUCOSE,RANDOM 218 mg/dL (70-110); POTASSIUM 4.2 mmol/L (3.5-5.1); SODIUM SERUM 133 mmol/L (136-145); UREA NITROGEN, BLOOD 28 mg/dL (7-18); VANCOMYCIN,RANDOM 15.9 mcg/mL (25.0-50.0)
[2023-08-13 08:22] VITALS: BP 128/72; PULSE 77; RESP 19; TEMP 97.8
[2023-08-13] MEDS: LACTOBAC ACID/BULG/BIFID/THERM TABLET PO SCH (09:27)
[2023-08-13 15:13] VITALS: BP 130/70; PULSE 80; RESP 19; TEMP 98.2
[2023-08-13 20:44] VITALS: BP 117/70; PULSE 82; RESP 18; TEMP 97.8
[2023-08-14 04:14] VITALS: BP 114/69; PULSE 76; RESP 18; TEMP 98.4
[2023-08-14 08:07] LABS: ANION GAP 10 mmol/L (8-16); CALCIUM, TOTAL 8.6 mg/dL (8.8-10.5); CARBON DIOXIDE 26 mmol/L (22-29); CHLORIDE 98 mmol/L (98-107); CREATININE 0.55 mg/dL (0.60-1.30); GLOMERULAR FILTR. RATE CALC > 60 mL/min (>60); GLUCOSE,RANDOM 170 mg/dL (70-110); POTASSIUM 4.1 mmol/L (3.5-5.1); SODIUM SERUM 134 mmol/L (136-145); UREA NITROGEN, BLOOD 23 mg/dL (7-18)
[2023-08-14] MEDS: IVERMECTIN 3 MG TABLET PO ONE (08:38)
[2023-08-14 08:57] VITALS: BP 118/80; PULSE 84; RESP 18; TEMP 97.6
[2023-08-14] MEDS: PERMETHRIN 5% 60 GM CREAM TP ONE (09:00)
[2023-08-14 17:08] VITALS: BP 119/72; PULSE 75; RESP 18; TEMP 97.5
[2023-08-14 21:05] VITALS: BP 113/66; PULSE 82; RESP 18; TEMP 99.3
[2023-08-15 03:09] VITALS: BP 112/75; PULSE 81; RESP 18; TEMP 98
[2023-08-15 08:04] LABS: ANION GAP 7 mmol/L (8-16); CALCIUM, TOTAL 8.4 mg/dL (8.8-10.5); CARBON DIOXIDE 26 mmol/L (22-29); CHLORIDE 100 mmol/L (98-107); CREATININE 0.69 mg/dL (0.60-1.30); GLOMERULAR FILTR. RATE CALC > 60 mL/min (>60); GLUCOSE,RANDOM 272 mg/dL (70-110); SODIUM SERUM 133 mmol/L (136-145); UREA NITROGEN, BLOOD 22 mg/dL (7-18)
[2023-08-15 08:44] VITALS: BP 109/74; PULSE 75; RESP 18; TEMP 98
[2023-08-15] MEDS: IVERMECTIN 3 MG TABLET PO ONE (09:14)
[2023-08-15] MEDS: PERMETHRIN 5% 60 GM CREAM TP ONE (09:26)
[2023-08-15] MEDS: INSULIN LISPRO 100 UNITS/ML SQ PRN (11:50)
[2023-08-15] MEDS ORDERED: DEXTROSE 50%-WATER 25 GM/50 ML SYRINGE IVP PRN (12:00)
[2023-08-15 13:30] LABS: GLUCOMETER DEV NAME(LOC) 6N.2B; GLUCOSE,POINT OF CARE 223 MG/DL (70-110)
[2023-08-15 16:22] VITALS: BP 106/69; PULSE 73; RESP 18; TEMP 98.1
[2023-08-15 19:30] VITALS: BP 102/66; PULSE 74; RESP 20; TEMP 97.7
[2023-08-15 20:25] LABS: GLUCOMETER DEV NAME(LOC) 6N.2B; GLUCOSE,POINT OF CARE 199 MG/DL (70-110)
[2023-08-16 03:06] LABS: GLUCOMETER DEV NAME(LOC) 6S.2; GLUCOSE,POINT OF CARE 205 MG/DL (70-110)
[2023-08-16 03:08] VITALS: BP 111/74; PULSE 72; RESP 18; TEMP 98
[2023-08-16 06:00] LABS: GLUCOMETER DEV NAME(LOC) 4E.2; GLUCOSE,POINT OF CARE 235 MG/DL (70-110)
[2023-08-16 07:29] LABS: ANION GAP 11 mmol/L (8-16); CALCIUM, TOTAL 8.4 mg/dL (8.8-10.5); CARBON DIOXIDE 25 mmol/L (22-29); CHLORIDE 101 mmol/L (98-107); GLOMERULAR FILTR. RATE CALC > 60 mL/min (>60); GLUCOSE,RANDOM 186 mg/dL (70-110); SODIUM SERUM 137 mmol/L (136-145); UREA NITROGEN, BLOOD 18 mg/dL (7-18)
[2023-08-16 19:52] VITALS: BP 105/65; PULSE 76; RESP 18; TEMP 98.2
[2023-08-16 20:15] LABS: GLUCOMETER DEV NAME(LOC) 6N.2B; GLUCOSE,POINT OF CARE 231 MG/DL (70-110)
[2023-08-16 21:00] LABS: GLUCOMETER DEV NAME(LOC) 6S.2; GLUCOSE,POINT OF CARE 189 MG/DL (70-110)
[2023-08-16] MEDS: ACETAMINOPHEN 325 MG TABLET PO PRN (23:13)
[2023-08-17 02:41] LABS: GLUCOMETER DEV NAME(LOC) 4E.2; GLUCOSE,POINT OF CARE 260 MG/DL (70-110)
[2023-08-17 04:40] VITALS: BP 117/62; PULSE 68; RESP 18; TEMP 97.9
[2023-08-17 06:56] LABS: BASOPHILS % (AUTO) 0.5 % (0.0-2.0); EOSINOPHILS % (AUTO) 4.7 % (1.0-6.0); HEMATOCRIT 31.1 % (41-53); HEMOGLOBIN 9.9 g/dL (13.5-17.5); LYMPHOCYTES # (AUTO) 2.4 K/uL (1.0-4.8); LYMPHOCYTES % (AUTO) 27.6 % (22.0-44.0); MEAN CORPUSCULAR HEMOGLOBIN 24.3 pg (26.0-34.0); MEAN CORPUSCULAR HGB CONC 31.7 G/dL (31.0-37.0); MEAN CORPUSCULAR VOLUME 77 fL (80-100); MONOCYTES # (AUTO) 0.8 K/uL (0.1-1.0); MONOCYTES % (AUTO) 8.8 % (2.0-9.0); NEUTROPHILS # (AUTO) 5.1 K/uL (1.8-7.7); NEUTROPHILS % (AUTO) 58.4 % (40.0-70.0); PLATELET COUNT (AUTO) 387 K/uL (150-450); RED BLOOD CELL COUNT(AUTO) 4.07 MIL/uL (4.50-5.90); RED CELL DISTRIBUTION WIDTH 18.5 % (11.5-14.5); WHITE BLOOD COUNT (AUTO) 8.7 K/uL (4.5-11.0)
[2023-08-17 07:21] LABS: ALANINE AMINOTRANSFERASE 8 U/L (12-78); ALBUMIN 2.5 g/dL (3.4-5.0); ALKALINE PHOSPHATASE 130 U/L (46-116); ANION GAP 10 mmol/L (8-16); ASPARTATE AMINOTRANSFERASE 10 U/L (15-37); BILIRUBIN,TOTAL 0.1 mg/dL (0.1-1.0); C-REACTIVE PROTEIN QUANT 1.77 mg/dL (0.00-0.30); CALCIUM, TOTAL 8.4 mg/dL (8.8-10.5); CARBON DIOXIDE 25 mmol/L (22-29); CHLORIDE 100 mmol/L (98-107); CREATININE 0.68 mg/dL (0.60-1.30); GLOMERULAR FILTR. RATE CALC > 60 mL/min (>60); GLUCOSE,RANDOM 197 mg/dL (70-110); POTASSIUM 3.8 mmol/L (3.5-5.1); SODIUM SERUM 135 mmol/L (136-145); TOTAL PROTEIN, SERUM 7.4 g/dL (6.4-8.2); UREA NITROGEN, BLOOD 20 mg/dL (7-18)
[2023-08-17 07:46] LABS: GLUCOMETER DEV NAME(LOC) 6N.2B; GLUCOSE,POINT OF CARE 217 MG/DL (70-110)
[2023-08-17 08:00] VITALS: BP 118/64; PULSE 66; RESP 19; TEMP 98.2
[2023-08-17 08:23] LABS: RBC MORPHOLOGY COMMENT ABNORMAL RBC MORPH
[2023-08-17 12:16] LABS: GLUCOMETER DEV NAME(LOC) 4E.2; GLUCOSE,POINT OF CARE 186 MG/DL (70-110)
[2023-08-17 16:22] VITALS: BP 122/62; PULSE 70; RESP 19; TEMP 98.4
[2023-08-17 23:05] LABS: GLUCOMETER DEV NAME(LOC) 6N.2B; GLUCOSE,POINT OF CARE 203 MG/DL (70-110)
[2023-08-17 23:05] LABS: GLUCOMETER DEV NAME(LOC) 6N.2B; GLUCOSE,POINT OF CARE 199 MG/DL (70-110)
[2023-08-18 02:23] VITALS: BP 110/72; PULSE 82; RESP 18; TEMP 97.8
[2023-08-18] MEDS: ETHYL ALCOHOL 62% ANTISEPTIC NASAL SANITIZER 0.6 ML AMPUL NASAL ONE (04:10)
[2023-08-18] MEDS: RINGERS SOLUTION,LACTATED 1,000 ML IV ONE (04:12)
[2023-08-18] MEDS ORDERED: RINGERS SOLUTION,LACTATED 1,000 ML IV ONE (05:04)
[2023-08-18] MEDS ORDERED: SODIUM CL IRRIG SOLN BAG 3,000 ML IRRIG ONE (05:33)
[2023-08-18] MEDS ORDERED: HYDROmorphone HCL 2 MG/ML SYRINGE IVP PRN ×2 (06:30→06:45)
[2023-08-18] MEDS ORDERED: MEPERIDINE-PF 25 MG/ML VIAL IVP PRN ×2 (06:30→06:45)
[2023-08-18] MEDS ORDERED: FentaNYL CITRATE PF 100 MCG/2 ML VIAL IVP PRN (06:30)
[2023-08-18 06:36] LABS: GLUCOMETER DEV NAME(LOC) SDS.; GLUCOSE,POINT OF CARE 160 MG/DL (70-110)
[2023-08-18] MEDS: VANCOMYCIN HCL 1 GM/VIAL ONE (06:40)
[2023-08-18] MEDS ORDERED: FentaNYL CITRATE PF 100 MCG/2 ML VIAL ONE (07:17)
[2023-08-18] MEDS: FentaNYL CITRATE PF 100 MCG/2 ML VIAL IVP PRN (07:19)
[2023-08-18] MEDS: OXYGEN THERAPY IH SCH (08:00)
[2023-08-18 08:06] LABS: GLUCOMETER DEV NAME(LOC) 4E.2; GLUCOSE,POINT OF CARE 182 MG/DL (70-110)
[2023-08-18 09:13] VITALS: BP 104/60; PULSE 80; RESP 18; TEMP 97.8
[2023-08-18 09:47] LABS: ANION GAP 9 mmol/L (8-16); CALCIUM, TOTAL 8.6 mg/dL (8.8-10.5); CARBON DIOXIDE 24 mmol/L (22-29); CHLORIDE 99 mmol/L (98-107); CREATININE 0.64 mg/dL (0.60-1.30); GLOMERULAR FILTR. RATE CALC > 60 mL/min (>60); GLUCOSE,RANDOM 273 mg/dL (70-110); POTASSIUM 4.5 mmol/L (3.5-5.1); SODIUM SERUM 132 mmol/L (136-145); UREA NITROGEN, BLOOD 23 mg/dL (7-18)
[2023-08-18 13:05] LABS: GLUCOMETER DEV NAME(LOC) 6N.2B; GLUCOSE,POINT OF CARE 338 MG/DL (70-110)
[2023-08-18 16:33] VITALS: BP 114/70; PULSE 74; RESP 18; TEMP 97.7
[2023-08-18 20:21] VITALS: BP 116/53; PULSE 80; RESP 18; TEMP 98.1
[2023-08-18 20:31] LABS: GLUCOMETER DEV NAME(LOC) 6S.2; GLUCOSE,POINT OF CARE 253 MG/DL (70-110)
[2023-08-18] MEDS ORDERED: SODIUM CHLORIDE 0.9% 500 ML IV ONE (20:54)
[2023-08-18] MEDS: DiphenhydrAMINE/ZINC ACET 30 GM CREAM TP PRN (22:01)
[2023-08-19 04:15] VITALS: BP 111/62; PULSE 80; RESP 18; TEMP 98.1
[2023-08-19 05:16] LABS: GLUCOMETER DEV NAME(LOC) 6S.2; GLUCOSE,POINT OF CARE 109 MG/DL (70-110)
[2023-08-19] MEDS ORDERED: LIDOCAINE/PF 2% 5 ML SYRINGE IVP ONE (06:44)
[2023-08-19] MEDS ORDERED: DEXAMETHASONE SOD PHOS 4 MG/ML VIAL IVP ONE (06:44)
[2023-08-19] MEDS ORDERED: ONDANSETRON HCL 4 MG/2 ML VIAL IVP ONE (06:45)
[2023-08-19] MEDS ORDERED: ROCURONIUM BROMIDE 10 MG/ML 5 ML VIAL IVP ONE (06:46)
[2023-08-19] MEDS ORDERED: PROPOFOL 1% 20 ML VIAL IVP ONE (06:48)
[2023-08-19] MEDS ORDERED: SUGAMMADEX SODIUM 200 MG/2 ML VIAL IVP ONE (06:48)
[2023-08-19] MEDS ORDERED: FentaNYL CITRATE PF 100 MCG/2 ML VIAL IVP ONE (06:57)
[2023-08-19] MEDS ORDERED: MIDAZOLAM HCL 2 MG/2 ML VIAL IVP ONE (06:57)
[2023-08-19 07:01] LABS: GLUCOMETER DEV NAME(LOC) 6N.2B; GLUCOSE,POINT OF CARE 169 MG/DL (70-110)
[2023-08-19 08:35] VITALS: BP 116/67; PULSE 76; RESP 18; TEMP 98.4
[2023-08-19 14:46] LABS: GLUCOMETER DEV NAME(LOC) 6N.2B; GLUCOSE,POINT OF CARE 205 MG/DL (70-110)
[2023-08-19] MEDS ORDERED: CHLO3800 TP (14:58)
[2023-08-19] MEDS ORDERED: DOXY-354 PO (14:59)
[2023-08-19] MEDS ORDERED: HEPA500018 SQ (15:00)
[2023-08-19] MEDS ORDERED: LACT1CAP70 PO (15:01)
[2023-08-19] MEDS ORDERED: METF-1211 PO (15:02)
[2023-08-19] MEDS ORDERED: MULT-1303 PO (15:02)
[2023-08-19] MEDS ORDERED: MULT-700 PO (15:02)
[2023-08-19 16:25] VITALS: BP 97/63; PULSE 82; RESP 18; TEMP 98.1
[2023-08-19 17:09] VITALS: BP 101/60; PULSE 79; RESP 20; TEMP 98.1
[2023-08-19 19:06] LABS: GLUCOMETER DEV NAME(LOC) 6S.2; GLUCOSE,POINT OF CARE 194 MG/DL (70-110)
[2023-08-19 21:23] VITALS: BP 107/67; PULSE 80; RESP 18; TEMP 99.1
[2023-08-20 03:37] VITALS: BP 108/67; PULSE 73; RESP 18; TEMP 98.7
[2023-08-20 07:08] LABS: ANION GAP 13 mmol/L (8-16); CALCIUM, TOTAL 8.7 mg/dL (8.8-10.5); CARBON DIOXIDE 22 mmol/L (22-29); CHLORIDE 99 mmol/L (98-107); CREATININE 0.57 mg/dL (0.60-1.30); GLOMERULAR FILTR. RATE CALC > 60 mL/min (>60); GLUCOSE,RANDOM 142 mg/dL (70-110); POTASSIUM 3.8 mmol/L (3.5-5.1); SODIUM SERUM 134 mmol/L (136-145); UREA NITROGEN, BLOOD 18 mg/dL (7-18)
[2023-08-20 07:22] LABS: VANCOMYCIN,RANDOM 19.7 mcg/mL (25.0-50.0)
[2023-08-20 08:28] VITALS: BP 112/64; PULSE 70; RESP 18; TEMP 98.6
[2023-08-20 15:15] LABS: GLUCOMETER DEV NAME(LOC) 6S.2; GLUCOSE,POINT OF CARE 226 MG/DL (70-110)
[2023-08-20 15:15] LABS: GLUCOMETER DEV NAME(LOC) 6S.2; GLUCOSE,POINT OF CARE 174 MG/DL (70-110)
[2023-08-20 16:55] LABS: GLUCOMETER DEV NAME(LOC) 4E.2; GLUCOSE,POINT OF CARE 143 MG/DL (70-110)
[2023-08-21] MEDS ORDERED: PERMETHRIN 5% 60 GM CREAM TP ONE (09:00)
[2023-08-21] MEDS ORDERED: IVERMECTIN 3 MG TABLET PO ONE (09:00)
[2023-08-28] MEDS ORDERED: IVERMECTIN 3 MG TABLET PO ONE (09:00)
[2023-08-28] MEDS ORDERED: PERMETHRIN 5% 60 GM CREAM TP ONE (09:00)
[2023-09-04] MEDS ORDERED: PERMETHRIN 5% 60 GM CREAM TP ONE (09:00)
[2023-09-04] MEDS ORDERED: IVERMECTIN 3 MG TABLET PO ONE (09:00)
[2023-09-18] MEDS ORDERED: DOXYCYCLINE HYCLATE 100 MG TABLET PO SCH (05:00)
== END 2023-08-20 16:06 | DRG 721 ==
LOC: EMS 10:37 → 6S 12:38
PROVIDERS: ADMIT Internal Medicine; ATTEND Internal Medicine
PROC: 0JB70ZZ Excision of Back Subcutaneous Tissue and Fascia, Open Approach (ICD-10-PCS; principal; 2023-08-16)
DX: T81.41XA Infection following a procedure, superficial incisional surgical site, initial encounter (principal); G82.50 Quadriplegia, unspecified; T81.31XA Disruption of external operation (surgical) wound, not elsewhere classified, initial encounter; R78.81 Bacteremia; M46.22 Osteomyelitis of vertebra, cervical region; E87.1 Hypo-osmolality and hyponatremia; E11.40 Type 2 diabetes mellitus with diabetic neuropathy, unspecified; E11.69 Type 2 diabetes mellitus with other specified complication; B95.7 Other staphylococcus as the cause of diseases classified elsewhere; B86 Scabies; F15.10 Other stimulant abuse, uncomplicated; F20.9 Schizophrenia, unspecified; I10 Essential (primary) hypertension; Z98.1 Arthrodesis status; K64.9 Unspecified hemorrhoids; D64.9 Anemia, unspecified; Z87.891 Personal history of nicotine dependence; Z59.00 Homelessness unspecified; Z88.0 Allergy status to penicillin; Z74.01 Bed confinement status; Y83.8 Other surgical procedures as the cause of abnormal reaction of the patient, or of later complication, without mention of misadventure at the time of the procedure; Y92.89 Other specified places as the place of occurrence of the external cause
CPT/HCPCS: 36245; 36569; 72040; 72126; 72129; 72156; 72157; 72158; 76937; 80048; 80053; 80202; 82962; 83036; 85025; 85651; 86140; 87040; 87070; 87077; 87081; 87101; 87186; 87205; 88304; 92610; 93306; 97163; 99285; G0378; J0131; J1100; J1644; J1885; J2250; J2270; J2405; J2704; J3010; J3370; J3490; J7040; J7050; J7120; Q9967; 36415-L1; 36415-TC